=== PATIENT | female | born 1995 | race African-American/Black ===

== ENCOUNTER 2019-12-16 17:31 | Emergency (ER) | payer SELFPAY ==
[~2019-12-16] VITALS: Ht 157.5 cm; Wt 143.7 kg
[2019-12-16 17:39] VITALS: BP 134/90
[2019-12-16 18:16] LABS: BASOPHILS % (AUTO) 1 % (0-1); EOSINOPHILS % (AUTO) 2 % (1-7); LYMPHOCYTES % (AUTO) 40 % (22-44); MEAN CORPUSCULAR HEMOGLOBIN 27.9 pg (27.0-34.8); MEAN CORPUSCULAR HGB CONC 32.3 g/dL (32.4-35.8); MEAN PLATELET VOLUME 7.7 fL (7.4-10.4); MONOCYTES % (AUTO) 8 % (2-9); NEUTROPHILS % (AUTO) 50 % (42-75); PLATELET COUNT 229 x10^3/uL (130-400); RED BLOOD COUNT 5.04 x10^6/uL (3.82-5.3)
[2019-12-16 18:18] LABS: MD NO
[2019-12-16 18:21] LABS: ALBUMIN 3.5 g/dL (3.4-5.0); ANION GAP 2 mmol/L (5-15); CALCIUM 9.1 mg/dL (8.5-10.1); CHLORIDE 113 mmol/L (98-107)
[2019-12-16 18:23] LABS: ALANINE AMINOTRANSFERASE 13 U/L (12-78); ALKALINE PHOSPHATASE 86 U/L (45-117); BILIRUBIN,TOTAL 0.2 mg/dL (0.2-1.0); CREATININE 1.19 mg/dL (0.55-1.02); TOTAL PROTEIN 7.1 g/dL (6.4-8.2)
== END 2019-12-16 19:59 | disposition home or self-care (01) ==
LOC: ED 19:53
DX: F43.0 Acute stress reaction (principal); R07.89 Other chest pain
CPT/HCPCS: 36415; 71046; 80053; 85025; 93005; 99285